=== PATIENT | female | born 1945 | race Two or more races ===

== ENCOUNTER 2024-05-31 10:17 | Emergency (ER) | payer BC ==
[~2024-05-31] VITALS: Ht 160 cm; Wt 69.4 kg
[2024-05-31] MEDS ORDERED: VAZALORE81 MG (10:34)
[2024-05-31] MEDS ORDERED: TRAMADOL HCL 50 MG TABLET PO ONE (11:00)
[2024-05-31] MEDS ORDERED: KETO10TA2 PO (12:18)
[2024-05-31] MEDS ORDERED: KETOROLAC TROMETHAMINE 60 MG VIAL IM ONE ×2 (12:30→12:46)
== END 2024-05-31 12:56 | disposition home or self-care (01) ==
LOC: ER 10:19
DX: M25.552 Pain in left hip (principal); I10 Essential (primary) hypertension; Z88.2 Allergy status to sulfonamides